=== PATIENT | male | born 1975 | race African-American/Black ===

== ENCOUNTER 2023-09-10 15:37 | Outpatient (AMB) | payer OTHER, SELFPAY ==
--- NOTE | 2023-09-10 15:45 | A.OFFPC_ITS ---
Vital Signs 09/10/23 15:47 09/10/23 16:24 Height 5 ft 7 in Weight 270 lb BMI 42.3 BMI Reason not done Patient refused/unable BP 140/85 H 120/58 L Blood Pressure Location Rt brachial Lt brachial Position Sitting Sitting Pulse 81 Pulse Source Pulse Oximeter Temp 98.1 F Temp Source Temporal Artery Scan Pulse Oximetry (%) 96 Oxygen Delivery Method Room Air Intake Visit Reasons: EST care Intake Note: Patient is here to establish care. Patient reports he has not seen a doctor in about 6 years. Patient reports he has low back pain exacerbated by walking. 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 Accompanied by: Self / Same As Patient Allergies No Known Allergies Allergy (Verified 09/10/23 16:09) Medication List - Last Reconciled 09/10/23 by GABI Shanks No Known Home Meds Tobacco use date assessed: 09/10/23 Dental Screening Dental Screen Date: 09/10/23 Did you have a dental visit in the last 12 months?: Yes Did you have a dental problem in the last 6 months where you did not have access to dental care?: No Was dental information given to patient?: Patient has dentist HPI HPI Comments History of Present Illness Details Awais 48-year-old male with obesity, MDD and c hronic low back pain Surgery denies Health Maintenance: Colon would like to wait until age 51 Specialists: Optho Here today to est care and for CPE No previous medical records Has blurred vision when reading. Chronic low back pain, no overt trauma or surgery. Has been present for 5 years. Has never had it looked at before. Interested in losing wt. Discussed w him today the metabolic clinic and the bariatric clinic. Would like to think about this & get back to me. In regards to MDD - he states its related to waiting for his green card. Not on meds. Does not feel he needs counseling or meds. Has good family support [facility], [facility] Social History (Updated 09/10/23 @ 16:00 by Wilda Cazares [facility]) Household Members: Spouse and Friend(s) Household Members Other:: house sharing Housing: Apartment 75 years or older and lives alone: No Alcohol intake: current Alcohol intake frequency: a few times a month Patient Tobacco Use Status: Never used Tobacco e-Cigarette/Vaping Use: Never Used Use of substances other than those prescribed or required for medical reasons: No Have you been hit, kicked, punched, or otherwise hurt by someone within the past year? 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 1. Little interest or pleasure in doing things: nearly every day 2. Feeling down, depressed, or hopeless: several days 3. Trouble falling or staying asleep, or sleeping too much: several days 4. Feeling tired or having little energy: more than half the days 5. Poor appetite or overeating: nearly every day 6. Feeling bad about yourself - or that you are a failure or have let yourself or your family down: nearly every day 7. Trouble concentrating on things, such as reading the newspaper or watching television: not at all 8. Moving or speaking so slowly that other people could have noticed. Or the opposite - being so fidgety or restless that you have been moving around a lot more than usual: not at all 9. Thoughts that you would be better off or of hurting yourself in some way: not at all Total score: 13 Depression Screening Interpretation: Positive Depression Screening Follow-up: Existing condition Depression Screening Done: Yes 30704 - PHQ-9 Billing: Yes Source: Developed by Drs. Gabriel Dowling, Ashley Cuevas, Asif Art and colleagues, with an educational smooth from [employer]. Thrive Questionnaire Date Thrive assessed: 09/10/23 I am a: Patient What is your living situation today?: I have a steady place to live Within the past 12 months, did the food you bought not last and you didn't have the money to get more?: Never true Within the past 12 months, did you worry whether your food would run out before you got money to buy more?: Never true Do you have trouble paying for medicines?: No Do you have trouble getting transportation to medical appointments?: No Do you have trouble paying your heating and electricity bill?: No Do you have trouble taking care of your child, family member or friend?: No Do you have trouble with day-to-day activities such as bathing, preparing meals, shopping, managing finances, etc.?: No Are you currently unemployed and looking for a job?: No Are you interested in more education?: Yes Please select the resources that you would like help with: Education Currently or been in a relationship where the following occur: no concerns reported THRIVE Score: 0 AUDIT C Alcohol Use Questionnaire (AUDIT-C) 1. How often do you have a drink containing alcohol?: Monthly or less 2. How many drinks containing alcohol do you have on a typical day when you are drinking?: 1 or 2 3. How often do you have six or more drinks on one occasion?: Never Total Score: 1 Score Reviewed/Action Taken: Yes STERLING-7 AMB Questionnaire STERLING-7 Date STERLING - 7 assessed: 09/10/23 Feeling nervous, anxious, or on edge: 0 = Not at all Not being able to stop or control worryin = Not at all Worrying too much about different things: 0 = Not at all Trouble relaxin = Not at all Being so restless that it is hard to sit still: 0 = Not at all Becoming easily annoyed or irritable: 0 = Not at all Feeling afraid as if something awful might happen: 0 = Not at all Total STERLING-7 score (0-4 normal; 5-9 mild; 10-14 moderate; 15-21 severe): 0 Source: Developed by Drs. Gabriel Dowling, Ashley Cuevas, Asif Art and colleagues, with an educational smooth from [employer]. STERLING-7 Assessment Billing STERLING-7 Assessment Tool: STERLING-7 Assessment 54725 Review of Systems Const Details: Constitutional: Denies fever. Skin: Denies rash. Eye: Denies eye pain. ENMT: Denies sore throat and nasal congestion. Respiratory: Denies shortness of breath and cough. Gastrointestinal: Denies nausea, vomiting or abdominal pain. Cardiovascular: Denies chest pain and syncope. Genitourinary: Denies dysuria. Musculoskeletal: Denies extremity pain. Neurologic: Denies headaches, confusion, and weakness. Psychiatric: Denies suicidal thoughts and substance abuse. Allergy/ Immunologic: Denies impaired immunity. Physical exam (Primary Care) Vital Signs: Last Vital Signs Temp 98.1 F 09/10/23 15:47 Pulse 81 09/10/23 15:47 BP 140/85 H 09/10/23 15:47 Pulse Ox 96 09/10/23 15:47 Oxygen Delivery Method Room Air 09/10/23 15:47 BMI result Body Mass Index 42.3 BMI Assessment/Plan discussion: High BMI High, discussed plan: lifestyle Tobacco/Smoking Status: Tobacco use Status Tobacco use date assessed 09/10/23 09/10/23 15:57 Patient Tobacco Use Status Never used Tobacco 09/10/23 16:00 e-Cigarette/Vaping Use Never Used 09/10/23 16:00 PHQ-9: PHQ-9 Score PHQ-9: Total score 13 09/10/23 16:02 Depression Screening Interpretation: Positive Depression Screening Follow-up: Existing condition Thrive Assessment: Date of Thrive Assessment Date Thrive assessed 09/10/23 09/10/23 16:02 Currently or been in a relationship where the following occur: no concerns reported Advance Care Planning discussion: Exists, not on file Date of discussion: 09/10/23 Forms completed: Health Care Proxy and MOLST Time spent: 1-15 minutes, not on file Actual minutes spent: 4 Did not discuss due to Cultural/Spiritual beliefs: Yes Const Other: General: Well developed, well nourished, in no acute distress. Appears stated age. Head: Normocephalic, atraumatic. Eyes: Pupils are equal, round and reactive to light and accommodation. Conjunctivae are clear. Vision grossly normal. Ears: TMs clear AU, EACS WNL Nose: Patent, without discharge. Mouth: There are no ulcers or lesions noted. No inflammation, no post nasal dr ip, no plaques nor exudates. Neck: Supple, no adenopathy or thyromegaly. Lungs: Clear to auscultation bilaterally. No rales, rhonchi or wheeze noted. Good air flow in all cain. Heart: Regular rate and rhythm. No murmurs, click, rubs or gallops are noted. Abdomen: Bowel sounds present in all quadrants. The abdomen is soft, nontender, with no masses or organomegaly noted. No hernias are noted. Musculoskeletal: Joints are nontender, without swelling, redness, or effusions. Range of motion is observed to be normal. Pulses: Peripheral pulses are equal and palpable bilaterally. Extremities: No clubbing, cyanosis nor edema is noted. Neurologic: Gait and station normal. Cranial Nerves 2-12 intact. Motor strength grossly symmetrical and intact. No sensory loss. Balance normal. Skin: No rashes, ulcers, or lesions noted. Turgor is good. Skin color is good. Hair and nails are without abnormalities. Psych: Normal eye contact, affect and mood appropriate, and normal interaction s. Patient is alert and appropriate to context. Extremities: No clubbing, cyanosis or edema. Assessment and Plan Assessment & Plan (1) Encounter for general adult medical examination without abnormal findings: Code(s): Z00.00 - Encounter for general adult medical examination without abnormal findings (2) MDD (major depressive disorder), recurrent episode: Comment: not on meds, does not need counseling related to circumstances advised to let us know if something changes Code(s): F33.9 - Major depressive disorder, recurrent, unspecified Qualifiers: Major depression episode severity: mild Qualified Code(s): F33.0 - Major depressive disorder, recurrent, mild (3) Morbid obesity with BMI of 40.0-44.9, adult: Comment: encouraged lifestyle mods if interested in metabolic clinic or bariatric clinic let us know Code(s): E66.01 - Morbid (severe) obesity due to excess calories; Z68.41 - Body mass index [BMI] 40.0-44.9, adult (4) Blurred vision, bilateral: Comment: refer to optho Code(s): H53.8 - Other visual disturbances (5) Chronic low back pain: Comment: refer to pain mgmt for eval and tx Code(s): M54.50 - Low back pain, unspecified; G89.29 - Other chronic pain Qualifiers: Back pain laterality: midline Sciatica presence: without sciatica Qualified Code(s): M54.50 - Low back pain, unspecified; G89.29 - Other chronic pain Orders: Orders Hemoglobin A1c Today Comprehensive Gilbert. Panel Fast Today Lipid Panel Today PSA, Ultra Sensitive Today Microalbumin, Random (w Creat) Today Z00.00 - Encounter for general adult medical examination without abnormal findings Referrals Pain Management Referral G89.29 - Other chronic pain, M54.50 - Low back pain, unspecified Ophthalmology Referral H53.8 - Other visual disturbances Patient Instructions: RTO IN 1 YEAR FOR CPE, SOONER NEEDED Review Patient declined Colonoscopy: 09/10/23 Coding Level of Care Code New Pt Prev Care 40-64y(70625) Diagnoses Encounter for general adult medical examination without abnormal findings Z00.00 Mild episode of recurrent major depressive disorder F33.0 Major depression episode severity: mild Morbid obesity with BMI of 40.0-44.9, adult E66.01; Z68.41 Blurred vision, bilateral H53.8 Chronic midline low back pain without sciatica M54.50; G89.29 Back pain laterality: midline Sciatica presence: without sciatica Additional Codes STERLING-7 Assessment Billing - STERLING-7 Assessment Tool: STERLING-7 Assessment 89184 ([id number]) Vital Signs *Quality* - Advance Care Planning discussion: Exists, not on file ([id number]) Vital Signs *Quality* - Time spent: 1-15 minutes, not on file ([id number]) Vital Signs *Quality* - Did not discuss due to Cultural/Spiritual beliefs: Yes ([id number])
[2023-09-10 15:47] VITALS: BP 140/85; PULSE 81; TEMP 36.7; O2SAT 96; BMI 42.3
[2023-09-10 16:24] VITALS: BP 120/58
== END 2023-09-10 16:37 | disposition home or self-care (01) ==
PROVIDERS: Visit Provider Nurse Practitioner Family
DX: Z00.00 Encounter for general adult medical examination without abnormal findings (principal); F33.0 Major depressive disorder, recurrent, mild; E66.01 Morbid (severe) obesity due to excess calories; Z68.41 Body mass index [BMI] 40.0-44.9, adult; H53.8 Other visual disturbances; M54.50 Low back pain, unspecified; G89.29 Other chronic pain
CPT/HCPCS: 1124F; 99386

== ENCOUNTER 2023-10-23 11:58 | Outpatient (AMB) | payer OTHER, SELFPAY ==
--- NOTE | 2023-10-23 12:06 | A.OFFPC_ITS ---
Vital Signs 10/23/23 12:17 Height 5 ft 7 in Weight 272 lb 6 oz BMI 42.7 BP 122/86 Blood Pressure Location Lt brachial Position Sitting Pulse Source Pulse Oximeter Temp 98.1 F Temp Source Oral Pulse Oximetry (%) 98 Oxygen Delivery Method Room Air Intake Visit Reasons: Congested Intake Note: patient here for sick visit. c/o cough, congestion, chest pain. 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 Also reports that he did have a cough about 2 weeks ago. This has since resolved without any medical treatment. At home treatment: drinking h20 w/o relief Denies fever, chills, ear pain,sore throat. 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 Gabriel Dowling, Ashley Cuevas, Asif Art and colleagues, with an educational smooth from [employer]. Review of Systems Const All systems reviewed & are unremarkable except as noted in HPI and below Physical exam (Primary Care) Vital Signs: Last Vital Signs Temp 98.1 F 10/23/23 12:17 BP 122/86 10/23/23 12:17 Pulse Ox 98 10/23/23 12:17 Oxygen Delivery Method Room Air 10/23/23 12:17 BMI result Body Mass Index 42.7 Tobacco/Smoking Status: Tobacco use Status Tobacco use date assessed 09/10/23 10/23/23 12:08 Patient Tobacco Use Status Never used Tobacco 10/23/23 12:08 e-Cigarette/Vaping Use Never Used 10/23/23 12:08 Thrive Assessment: Date of Thrive Assessment Date Thrive assessed 09/10/23 10/23/23 12:08 Const Other: Awake alert NAD Sclera and conjunctiva clear bilat Nares patent, turbinates pale, no sinus tenderness with palpation bilat TM not visible due to cerumen in bilat EAC MMM, pharynx positive postnasal drip RRR LS CTAB Assessment and Plan Assessment & Plan (1) Allergic rhinitis: Code(s): J30.9 - Allergic rhinitis, unspecified Qualifiers: Allergic rhinitis trigger: unspecified Allergic rhinitis seasonality: seasonal Qualified Code(s): J30.2 - Other seasonal allergic rhinitis Medications: New cetirizine (Zyrtec) 10 mg PO DAILY 30 caps 0RF fluticasone propionate 50 mcg/actuation administer into each nostril 1 spray intranasal BID 16 grams 0RF Patient Instructions: Treat with Zyrtec daily and Flonase. If no improvement of symptoms or worsening of symptoms advised to return to the office for further evaluation and treat ment. Coding Level of Care Code Est Pt Level 3 (45996) Diagnoses Seasonal allergic rhinitis, unspecified trigger J30.2 Allergic rhinitis trigger: unspecified Allergic rhinitis seasonality: seasonal
[2023-10-23 12:17] VITALS: BP 122/86; TEMP 36.7; O2SAT 98; BMI 42.7
== END 2023-10-23 16:12 | disposition home or self-care (01) ==
LOC: HO.HMGFM 11:58
PROVIDERS: PCP Nurse Practitioner Family; Visit Provider Nurse Practitioner Family
DX: J30.2 Other seasonal allergic rhinitis (principal)
CPT/HCPCS: 99213

== ENCOUNTER 2024-12-13 09:23 | Outpatient (AMB) | payer OTHER, SELFPAY ==
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
[2024-12-13 09:39] VITALS: BP 142/80; PULSE 76; RESP 13; TEMP 36.4; O2SAT 96; BMI 43.8
--- OUTSIDE RECORDS SUMMARY | 2024-12-13 09:45 | XMS_ITS | Clinical Summary ---
Author Organization [facility] Address [address] [place] [address] Care Team Providers Care Change Management Coordinator Name Role Phone Unavailable Primary Care Provider Unavailabl e Source Comments PLEASE NOTE, if this patient is a minor, it may be UNLAWFUL to discuss sensitive information that is contained in these records (such as FAMILY PLANNING, MENTAL HEALTH or SUBSTANCE ABUSE) with the minor patient's parent or other person without the patient's specific authorization.[facility] Allergies No known active allergies Medications No known medications Immunizations Immunization Administration Dates Next Due Pfizer-BioNT[employer]le Biologics COVID-19 Vac cine Bivalent, (GALLEGOS PFIZER-BIONTECH COVID-19 VACCINE BIVALENT, (GALLEGOS CAP 06/28/2022 Social History Tobacco Use Types Packs/Day Years Used Date Smoking Tobacco: Never Passive Smoke Exposure: Never Smokeless Tobacco: Never Tobacco Cessation:Counseling Given: Not Answered Social Connections Answer Date Recorded Connectedness 0 01/23/2024 Financial Resource Strain Answer Date R ecorded Financial Resource Strain 0 2023 Stress Answer Date Recorded Stress 0 07/20/2023 Physical Activity Answer Date Recorded Physical Activity 0 07/20/2023 Food Insecurity Answer Date Recorded Food 0 02/04/2024 Transportation Needs Answer Date Record ed Transportation 0 07/20/2023 Housing Stability Answer Date Recorded Housing 0 07/20/2023 Safety and Environment Answer Date Bobo rded Safety 0 07/20/2023 Utilities Answer Date Recorded Utilities 0 07/20/2023 Employment Answer Date Recorded Stress 0 01/23/2024 Sex and Gender Information Value Date Recorded Sex Assigned at Not on file Legal Sex Male 8:20 AM PST Gender Identity Not on file Sexual Orientation Not on file Last Filed Vital Signs Vital Sign Reading Time Taken Comments Blood Pressure 126/80 08/06/2023 1:13 PM EDT Pulse 78 08/06/2023 1:13 PM EDT Temperature - - Respiratory Rate - - Oxygen Saturation - - Inhaled Oxygen Concentration - - Weight - - Height - - Body Mass Index - - Plan of Treatment Health Maintenance Due Date Last Done Comments Anxiety Screening 1976 Diabetes Screening 1976 Hepatitis C Screening 1976 Lipid Screening 1976 Tobacco Screening 1976 HIV Screening 1991 Imm-DTaP/Tdap/Td (1 - Tdap) 1995 Imm-Hepatitis B (1 of 3 - 19+ 3-dose series) 5 CT Colonography 2021 Colonoscopy 2021 Colorectal Cancer Screening 2021 FIT/gFOBT 2021 Fecal DNA 2021 Flexible Sigmoidoscopy 2021 [id number] () 01/10/2024 023 Alcohol and Drug Screen 05/11/2024 Depression Annual Screen 05/11/2024 Hypertension Screening (#1) 08/05/2024 Dental BW 08/07/2024 08/06/2023 Dental Examination 08/07/2024 08/06/2023 Dental Perio Charting 08/07/2024 08/06/2023 Dental Prophy 08/07/2024 08/06/2023 Imm-Influenza (#1) 2025 Dental FMX/Pano 08/07/2028 08/06/2023 Procedures Procedure Name Priority Date/Time Associated Diagnosis Comments Full INTRAORAL - COMP SERIES OF RADIOGRAPHIC IMAGES Routine 08/06/2023 1:00 PM EDT Retained tooth root Defective dental mu-ism Caries Full PROPHYLAXIS - ADULT Routine 024 1:00 PM EDT Retained tooth root Caries Defective dental mu-ism Full COMP ORAL EVALUATION - NEW/ESTABLISHED PATIENT Routine 08/06/2023 1:00 PM EDT Retained tooth root Caries Defective dental mu-ism from Last 3 Months or Most Recently Relevant to Health Maintenance [place]
== END 2024-12-13 10:59 | disposition home or self-care (01) ==
PROVIDERS: PCP Nurse Practitioner Family; Visit Provider Nurse Practitioner Family
DX: S13.4XXA Sprain of ligaments of cervical spine, initial encounter (principal); M54.50 Low back pain, unspecified; V89.2XXA Person injured in unspecified motor-vehicle accident, traffic, initial encounter; Z04.2 Encounter for examination and observation following work accident

== ENCOUNTER → 2024-12-13 09:23 | Outpatient (BNVA) | payer OTHER, SELFPAY | PROVIDERS: PCP Nurse Practitioner Family; Visit Provider Nurse Practitioner Family | DX: Z00.00 Encounter for general adult medical examination without abnormal findings (principal); E78.00 Pure hypercholesterolemia, unspecified; E55.9 Vitamin D deficiency, unspecified; I73.9 Peripheral vascular disease, unspecified; M54.50 Low back pain, unspecified; G89.29 Other chronic pain; H61.23 Impacted cerumen, bilateral; E66.01 Morbid (severe) obesity due to excess calories; R90.89 Other abnormal findings on diagnostic imaging of central nervous system; H53.8 Other visual disturbances; D49.2 Neoplasm of unspecified behavior of bone, soft tissue, and skin; F33.0 Major depressive disorder, recurrent, mild; J30.2 Other seasonal allergic rhinitis; G47.10 Hypersomnia, unspecified; Z23 Encounter for immunization; Z68.41 Body mass index [BMI] 40.0-44.9, adult | CPT/HCPCS: 69209; 90471; 90715; 96127; 99212; 99396 ==

== ENCOUNTER 2024-12-13 09:32 | Outpatient (AMB) | payer OTHER, SELFPAY ==
--- NOTE | 2024-12-13 09:41 | MHC.PC.OV ---
Vital Signs 12/13/24 09:42 Height 5 ft 7 in Weight 280 lb BMI 43.8 BP 142/80 H Blood Pressure Location Lt brachial Position Sitting Respiration 13 Pulse 76 Pulse Source Pulse Oximeter Temp 97.6 F Temp Source Oral Pulse Oximetry (%) 96 Oxygen Delivery Method Room Air Intake Visit Reasons: cpe Intake Note: CPE Cellars Supervisor Required: No Allergies No Known Allergies Allergy (Verified 12/13/24 09:42) Tobacco use date assessed: 12/13/24 Dental Screening Dental Screen Date: 12/13/24 Did you have a dental visit in the last 12 months?: Yes Did you have a dental problem in the last 6 months where you did not have access to dental care?: No Was dental information given to patient?: Patient has dentist [facility] Medical History (Updated 12/13/24 @ 09:34 by Mary Lou Lazaro MA) No pertinent family history Depression Allergic Surgical History (Updated 12/13/24 @ 09:34 by Mary Lou Lazaro MA) No pertinent past surgical history Social History (Updated 09/10/23 @ 16:00 by Wilda Cazares CMA) Household Members: Spouse and Friend(s) Household Members Other:: house sharing Housing: Apartment [address] years or older and lives alone: No Alcohol intake: current Alcohol intake frequency: a few times a month Patient Tobacco Use Status: Never used Tobacco e-Cigarette/Vaping Use: Never Used service: No Current occupational status: employed 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 1. Little interest or pleasure in doing things: several days 2. Feeling down, depressed, or hopeless: not at all 3. Trouble falling or staying asleep, or sleeping too much: not at all 4. Feeling tired or having little energy: several days 5. Poor appetite or overeating: not at all 6. Feeling bad about yourself - or that you are a failure or have let yourself or your family down: not at all 7. Trouble concentrating on things, such as reading the newspaper or watching television: not at all 8. Moving or speaking so slowly that other people could have noticed. Or the opposite - being so fidgety or restless that you have been moving around a lot more than usual: not at all 9. Thoughts that you would be better off or of hurting yourself in some way: not at all Total score: 2 Depression Screening Interpretation: Negative Depression Screening Done: Yes 14767 - PHQ-9 Billing: Yes Source: Developed by Drs. Gabriel Dowling, Ashley Cuevas, Asif Art and colleagues, with an educational smooth from [employer]. Thrive Questionnaire Date Thrive assessed: 12/13/24 I am a: Patient What is your living situation today?: I have a steady place to live Within the past 12 months, did the food you bought not last and you didn't have the money to get more?: Never true Within the past 12 months, did you worry whether your food would run out before you got money to buy more?: Never true Do you have trouble paying for medicines?: No Do you have trouble getting transportation to medical appointments?: No Do you have trouble paying your heating and electricity bill?: No Do you have trouble taking care of your child, family member or friend?: No Do you have trouble with day-to-day activities such as bathing, preparing meals, shopping, managing finances, etc.?: No Are you currently unemployed and looking for a job?: No Are you interested in more education?: No THRIVE Score: 0 STERLING-7 AMB Questionnaire STERLING-7 Date STERLING - 7 assessed: 12/13/24 Feeling nervous, anxious, or on edge: 0 = Not at all Not being able to stop or control worryin = Not at all Worrying too much about different things: 0 = Not at all Trouble relaxin = Not at all Being so restless that it is hard to sit still: 0 = Not at all Becoming easily annoyed or irritable: 0 = Not at all Feeling afraid as if something awful might happen: 0 = Not at all Total STERLING-7 score (0-4 normal; 5-9 mild; 10-14 moderate; 15-21 severe): 0 Source: Developed by Drs. Gabriel Dowling, Ashley Cuevas, Asif Art and colleagues, with an educational smooth from [employer]. STERLING-7 Assessment Billing STERLING-7 Assessment Tool: STERLING-7 Assessment 61619 Physical exam (Primary Care) Vital Signs: Last Vital Signs Temp 97.6 F 12/13/24 09:42 Pulse 76 12/13/24 09:42 Resp 13 12/13/24 09:42 BP 142/80 H 12/13/24 09:42 Pulse Ox 96 12/13/24 09:42 Oxygen Delivery Method Room Air 12/13/24 09:42 BMI result Body Mass Index 43.8 Tobacco/Smoking Status: Tobacco use Status Tobacco use date assessed 12/13/24 12/13/24 09:44 Patient Tobacco Use Status Never used Tobacco 12/13/24 09:44 e-Cigarette/Vaping Use Never Used 12/13/24 09:44 Depression Screening Interpretation: Negative Thrive Assessment: Date of Thrive Assessment Date Thrive assessed 12/13/24 12/13/24 09:44 Coding Additional Codes PHQ-9 - 88176 - PHQ-9 Billing: Yes ([id number]) STERLING-7 Assessment Billing - STERLING-7 Assessment Tool: STERLING-7 Assessment 31775 ([id number])
[2024-12-13 09:42] VITALS: BP 142/80; PULSE 76; RESP 13; TEMP 36.4; O2SAT 96; BMI 43.8
--- NOTE | 2024-12-13 10:18 | A.OFFPC_ITS ---
Vital Signs 3 12/13/24 09:42 Height 5 ft 7 in Weight 280 lb BMI 43.8 BP 142/80 H Blood Pressure Location Lt brachial Position Sitting Respiration 13 Pulse 76 Pulse Source Pulse Oximeter Temp 97.6 F Temp Source Oral Pulse Oximetry (%) 96 Oxygen Delivery Method Room Air Intake Visit Reasons: cpe Allergies No Known Allergies Allergy (Verified 12/13/24 10:29) Medication List - Last Reconciled 12/13/24 by Jessica Herrera, RETINAL ANGIOGRAPHER- cetirizine (Zyrtec) 10 mg PO DAILY fluticasone propionate 50 mcg/actuation 1 spray intranasal BID Tobacco use date assessed: 12/13/24 Dental Screening Dental Screen Date: 12/13/24 HPI HPI Comments 2 History of Present Illness0 Details Awais 49-year-old male with obesity, MDD and c hronic low back pain Surgery denies Health Maintenance: Colon would like to wait until age 51 Tdap today Specialists: Optho Here today for CPE Has blurred vision when reading. New growth Left lower lid Chronic low back pain, referred to pain mgmt in the past; did not attend appts. Does have lumbar disc bulge noted on imaging. Obese discussed referrals in past In regards to MDD - he states its related to waiting for his green card. Not on meds. Does not feel he needs counseling or meds. Has good family support Incidental findings on 12/06/[address] review w/ him. Concern well defined ovoid hypodensity L caudate ? CVA. Denies overt sx other than change in speech a few years ago. willing to pursue work up. Plan Labs, Echo, sleep study, MRI Brain w/o contrast I will fu once results are back Tdap today Optho referral Consider pain mgmt, vascular or bariatric referral in the future my office will coordinate f/u once results are back An additional 30 minutes was spent addressing the problem(s) noted at todays visit. This includes time spent before the visit reviewing the chart, time spent during the visit, and time spent after the visit on documentation reviewing laboratory results, diagnostic imaging, medications, performing a medically necessary evaluation, counseling on diagnoses, care coordination, ordering appropriate tests, ordering appropriate medications, review of tests performed by other providers, reporting test results with the patient, communication with other healthcare providers. [facility] Medical History (Updated 12/13/24 @ 10:[address] 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 1. Little interest or pleasure in doing things: not at all 2. Feeling down, depressed, or hopeless: not at all 3. Trouble falling or staying asleep, or sleeping too much: not at all 4. Feeling tired or having little energy: not at all 5. Poor appetite or overeating: not at all 6. Feeling bad about yourself - or that you are a failure or have let yourself or your family down: not at all 7. Trouble concentrating on things, such as reading the newspaper or watching television: not at all 8. Moving or speaking so slowly that other people could have noticed. Or the opposite - being so fidgety or restless that you have been moving around a lot more than usual: not at all 9. Thoughts that you would be better off or of hurting yourself in some way: not at all Total score: 0 Depression Screening Interpretation: Negative Depression Screening Done: Yes 10713 - PHQ-9 Billing: Yes Source: Developed by Drs. Gabriel Dowling, Ashley Cuevas, Asif Art and colleagues, with an educational smooth from [employer]. Thrive Questionnaire Date Thrive assessed: 12/13/24 I am a: Patient What is your living situation today?: I have a steady place to live Within the past 12 months, did the food you bought not last and you didn't have the money to get more?: Never true Within the past 12 months, did you worry whether your food would run out before you got money to buy more?: Never true Do you have trouble paying for medicines?: No Do you have trouble getting transportation to medical appointments?: No Do you have trouble paying your heating and electricity bill?: No Do you have trouble taking care of your child, family member or friend?: No Do you have trouble with day-to-day activities such as bathing, preparing meals, shopping, managing finances, etc.?: No Are you currently unemployed and looking for a job?: No Are you interested in more education?: No Please select the resources that you would like help with: None Currently or been in a relationship where the following occur: No concerns reported THRIVE Score: 0 AUDIT C Alcohol Use Questionnaire (AUDIT-C) 1. How often do you have a drink containing alcohol?: Never 3. How often do you have six or more drinks on one occasion?: Never Total Score: 0 Score Reviewed/Action Taken: Yes STERLING-7 AMB Questionnaire STERLING-7 Date STERLING - 7 assessed: 12/13/24 Feeling nervous, anxious, or on edge: 0 = Not at all Not being able to stop or control worryin = Not at all Worrying too much about different things: 0 = Not at all Trouble relaxin = Not at all Being so restless that it is hard to sit still: 0 = Not at all Becoming easily annoyed or irritable: 0 = Not at all Feeling afraid as if something awful might happen: 0 = Not at all Total STERLING-7 score (0-4 normal; 5-9 mild; 10-14 moderate; 15-21 severe): 0 Source: Developed by Drs. Gabriel Dowling, Ashley Cuevas, Asif Art and colleagues, with an educational smooth from [employer]. STERLING-7 Assessment Billing STERLING-7 Assessment Tool: STERLING-7 Assessment 34022 Physical exam (Primary Care) Vital Signs: Last Vital Signs Temp 97.6 F 12/13/24 09:42 Pulse 76 12/13/24 09:42 Resp 13 12/13/24 09:42 BP 142/80 H 12/13/24 09:42 Pulse Ox 96 12/13/24 09:42 Oxygen Delivery Method Room Air 12/13/24 09:42 BMI result Body Mass Index 43.8 BMI Assessment/Plan discussion: High BMI High, discussed plan: lifestyle Tobacco/Smoking Status: Tobacco use Status Tobacco use date assessed 09/10/23 10/23/23 12:08 Patient Tobacco Use Status Never used Tobacco 10/23/23 12:08 e-Cigarette/Vaping Use Never Used 10/23/23 12:08 Depression Screening Interpretation: Negative Thrive Assessment: Date of Thrive Assessment Date Thrive assessed 09/10/23 10/23/23 12:08 Currently or been in a relationship where the following occur: No concerns reported Advance Care Planning discussion: Exists, not on file Date of discussion: 09/10/23 Forms completed: Health Care Proxy and MOLST Time spent: 1-15 minutes, not on file Actual minutes spent: 4 Did not discuss due to Cultural/Spiritual beliefs: Yes Const Other: General: Well developed, well nourished, in no acute distress. Appears stated age. Head: Normocephalic, atraumatic. Eyes: Pupils are equal, round and reactive to light and accommodation. Conjunctivae are clear. Vision grossly normal. Growth left lower eye lid Ears: TMs clear AU, EACS WNL s/p lavage bilat d/t cerumen impaction Nose: Patent, without discharge. Mouth: There are no ulcers or lesions noted. No inflammation, no post nasal drip, no plaques nor exudates. Neck: Supple, no adenopathy or thyromegaly. Lungs: Clear to auscultation bilaterally. No rales, rhonchi or wheeze noted. Good air flow in all cain. Heart: Regular rate and rhythm. No murmurs, click, rubs or gallops are noted. Abdomen: Bowel sounds present in all quadrants. The abdomen is soft, nontender, with no masses or organomegaly noted. No hernias are noted. Musculoskeletal: Joints are nontender, without swelling, redness, or effusions. Range of motion is observed to be normal. Pulses: Peripheral pulses are equal and palpable bilaterally. Extremities: No clubbing, cyanosis nor edema is noted. Hairless BLE, scars noted to ble, decreased PP bilat Neurologic: Gait and station normal. Cranial Nerves 2-12 intact. Motor strength grossly symmetrical and intact. No sensory loss. Balance normal. Skin: No rashes, ulcers, or lesions noted. Turgor is good. Skin color is good. Hair and nails are without abnormalities. Psych: Normal eye contact, affect and mood appropriate, and normal interactions. Patient is alert and appropriate to context. Extremities: No clubbing, cyanosis or edema. Office Procedures Cerumen Removal From which ear canal was the cerumen removed: bilateral Removal: irrigation Notes: patient tolerated procedure well, no complications and ear canal clear 93301-Aim Irrigation/Lavage Results Reviewed Results Reviewed: Coding Level of Care Code Est Pt Level 4 (77147) Est Pt Prev Care 40-64y(26554) Diagnoses Encounter for general adult medical examination without abnormal findings Z00.00 Need for Tdap vaccination Z23 Impacted cerumen, bilateral H61.23 Laboratory exam ordered as part of routine general medical examination Z00.00 Morbid obesity with BMI of 40.0-44.9, adult E66.01; Z68.[address] R90.89 Blurred vision, bilateral H53.8 Growth of eyelid D49.2 PVD (peripheral vascular disease) I73.9 Mild episode of recurrent major depressive disorder F33.0 Major depression episode severity: mild Bulge of lumbar disc without myelopathy M51.369 Seasonal allergic rhinitis, unspecified trigger J30.2 Allergic rhinitis trigger: unspecified Allergic rhinitis seasonality: seasonal Chronic midline low back pain without sciatica M54.50; G89.29 Back pain laterality: midline Sciatica presence: without sciatica CPT Codes Office Procedure - CPT: 96601-Zln Irrigation/Lavage ([id number]) Additional Codes PHQ-9 - 77826 - PHQ-9 Billing: Yes ([id number]) STERLING-7 Assessment Billing - STERLING-7 Assessment Tool: STERLING-7 Assessment 79431 ([id number]) Vital Signs *Quality* - Advance Care Planning discussion: Exists, not on file ([id number]) Vital Signs *Quality* - Time spent: 1-15 minutes, not on file ([id number]) Vital Signs *Quality* - Did not discuss due to Cultural/Spiritual beliefs: Yes ([id number]) Assessment & Plan Assessment & Plan (1) Encounter for general adult medical examination without abnormal findings: Onset Date: ~12/13/24 Code(s): Z00.00 - Encounter for general adult medical examination without abnormal findings Category: Medical (2) Need for Tdap vaccination: Code(s): Z23 - Encounter for immunization Category: Medical (3) Impacted cerumen, bilateral: Code(s): H61.23 - Impacted cerumen, bilateral (4) Laboratory exam ordered as part of routine general medical examination: Code(s): Z00.00 - Encounter for general adult medical examination without abnormal findings Category: Medical (5) Morbid obesity with BMI of 40.0-44.9, adult: Comment: encouraged lifestyle mods if interested in metabolic clinic or bariatric clinic let us know Code(s): E66.01 - Morbid (severe) obesity due to excess calories; Z68.41 - Body mass index [BMI] 40.0-44.9, adult Category: Medical (6) Abnormal brain CT: Onset Date: 12/06/24 Comment: ct scan [facility] 12/06/24 well defined ovoid hypodensity L caudate ? CVA Code(s): R90.89 - Other abnormal findings on diagnostic imaging of central nervous system Category: Medical (7) Blurred vision, bilateral: Comment: refer to optho Code(s): H53.8 - Other visual disturbances Category: Medical (8) Growth of eyelid: Comment: left lower Code(s): D49.2 - Neoplasm of unspecified behavior of bone, soft tissue, and skin Category: Medical (9) PVD (peripheral vascular disease): Comment: based on exam check labs Code(s): I73.9 - Peripheral vascular disease, unspecified Category: Medical (10) MDD (major depressive disorder), recurrent episode: Comment: not on meds, does not need counseling related to circumstances advised to let us know if something changes Code(s): F33.9 - Major depressive disorder, recurrent, unspecified Category: Medical Qualifiers: Major depression episode severity: mild Qualified Code(s): F33.0 - Major depressive disorder, recurrent, mild (11) Bulge of lumbar disc without myelopathy: Code(s): M51.369 - Other intervertebral disc degeneration, lumbar region without mention of lumbar back pain or lower extremity pain Category: Medical (12) Allergic rhinitis: Code(s): J30.9 - Allergic rhinitis, unspecified Category: Medical Qualifiers: Allergic rhinitis trigger: unspecified Allergic rhinitis seasonality: s easonal Qualified Code(s): J30.2 - Other seasonal allergic rhinitis (13) Chronic low back pain: Comment: refer to pain mgmt for eval and tx Code(s): M54.50 - Low back pain, unspecified; G89.29 - Other chronic pain Category: Medical Qualifiers: Back pain laterality: midline Sciatica presence: without sciatica Q ualified Code(s): M54.50 - Low back pain, unspecified; G89.29 - Other chronic pain Plan . Orders: Orders 2 Comprehensive Met. Panel Today Z00.00 - Encounter for general adult medical examination without abnormal findings Hemoglobin A1c Today Z00.00 - Encounter for general adult medical examination without abnormal findings Microalbumin, Random (w Creat) Today Z00.00 - Encounter for general adult medical examination without abnormal findings TDaP Immunization Today D49.2 - Neoplasm of unspecified behavior of bone, soft tissue, and skin, H53.8 - Other visual disturbances, Z23 - Encounter for immunization Complete Blood Count no Diff Today Z00.00 - Encounter for general adult medical examination without abnormal findings Lipid Panel Today Z00.00 - Encounter for general adult medical examination without abnormal findings Prostate Specific Antigen Scr Today Z00.00 - Encounter for general adult medical examination without abnormal findings TSH reflex Free T4 Today Z00.00 - Encounter for general adult medical examination without abnormal findings Vitamin B12 and Folate Today Z00.00 - Encounter for general adult medical examination without abnormal findings Vitamin D 25-OH Total Today Z00.00 - Encounter for general adult medical examination without abnormal findings RT home sleep study Today E66.01 - Morbid (severe) obesity due to excess calories, G47.10 - Hypersomnia, unspecified, R90.89 - Other abnormal findings on diagnostic imaging of central nervous system, Z68.41 - Body mass index [BMI] 40.0-44.9, adult CA echo transthoracic complete Today E66.01 - Morbid (severe) obesity due to excess calories, R90.89 - Other abnormal findings on diagnostic imaging of central nervous system, Z68.41 - Body mass index [BMI] 40.0-44.9, adult MR head/brain wo con Today E66.01 - Morbid (severe) obesity due to excess calories, G47.10 - Hypersomnia, unspecified, R90.89 - Other abnormal findings on diagnostic imaging of central nervous system, Z68.41 - Body mass index [BMI] 40.0-44.9, adult Referrals 2 Ophthalmology Referral D49.2 - Neoplasm of unspecified behavior of bone, soft tissue, and skin, H53.8 - Other visual disturbances Medications: New 2 Boostrix Tdap (diphth,pertus(acell),tetanus) 0.5 mL IM ONCE 0.5 mL 0RF NS D49.2 - Neoplasm of unspecified behavior of bone, soft tissue, and skin, H53.8 - Other visual disturbances, Z23 - Encounter for immunization Refilled 2 cetirizine (Zyrtec) 10 mg PO DAILY 90 tabs 0RF fluticasone propionate 50 mcg/actuation administer into each nostril 1 spray intranasal BID 16 grams 0RF
== END 2024-12-13 11:00 | disposition home or self-care (01) ==
LOC: HO.HMCFM 09:32
PROVIDERS: PCP Nurse Practitioner Family; Visit Provider Nurse Practitioner Family
DX: Z00.00 Encounter for general adult medical examination without abnormal findings (principal); R90.89 Other abnormal findings on diagnostic imaging of central nervous system; E66.01 Morbid (severe) obesity due to excess calories; Z68.41 Body mass index [BMI] 40.0-44.9, adult; H53.8 Other visual disturbances; Z23 Encounter for immunization; H61.23 Impacted cerumen, bilateral; D49.2 Neoplasm of unspecified behavior of bone, soft tissue, and skin; I73.9 Peripheral vascular disease, unspecified; J30.2 Other seasonal allergic rhinitis; F33.0 Major depressive disorder, recurrent, mild; M51.369 Other intervertebral disc degeneration, lumbar region without mention of lumbar back pain or lower extremity pain

== ENCOUNTER 2024-12-14 12:38 | Outpatient (REF) | payer OTHER, SELFPAY ==
--- OUTSIDE RECORDS SUMMARY | 2024-12-14 13:12 | XMS_ITS | Clinical Summary ---
Author Organization [facility] Address [address] [place] [address] Care Team Providers Care Help Aid Name Role Phone Unavailable Primary Care Provider [...] medications Immunizations Immunization Administration Dates Next Due Pfizer-BioNTBuzzvil COVID-19 Vac cine Bivalent, (GALLEGOS PFIZER-BIONTECH COVID-19 [...] 2021 Fecal DNA 2021 Flexible Sigmoidoscopy 2021 Riw-GNZLV-05 () 01/10/2024 023 Alcohol and Drug Screen [...] PM EDT Retained tooth root Defective dental yazidi Caries Full PROPHYLAXIS - ADULT Routine 024 1:00 PM EDT Retained tooth root Caries Defective dental yazidi Full COMP ORAL EVALUATION - NEW/ESTABLISHED PATIENT Routine 08/06/2023 1:00 PM EDT Retained tooth root Caries Defective dental yazidi from Last 3 Months or Most Recently Relevant to Health Maintenance [place]ENTAL
[2024-12-14 14:35] LABS: Hematocrit 42.9 % (42.0-52.0); Hemoglobin 14.5 g/dl (14.0-18.0); Mean Corpuscular HGB Conc 33.8 g/dl (31.0-36.0); Mean Corpuscular Hemoglobin 27.8 pg (27.0-33.0); Mean Corpuscular Volume 82.3 fL (80.0-98.0); NRBC Abs Auto 0.000 X10*3/uL (0.0-0.012); NRBC Pct Auto 0.0 /100WBC (0.0-0.2); Platelet Count 134 X10*3/uL (160-400); Red Blood Count 5.21 X10*6/uL (4.60-5.80); White Blood Count 6.3 X10*3/uL (4.8-10.8)
[2024-12-14 14:42] LABS: Hemoglobin A1C 127.8092 umol/L; Total Hemoglobin (HGBA1C) 3859.5765 umol/L
[2024-12-14 14:57] LABS: Alanine Aminotransferase 74 U/L (0-40); Albumin Level 4.3 g/dL (3.5-5.0); Alkaline Phosphatase 58 U/L (39-117); Anion Gap 11 (12-20); Aspartate Amino Transferase 60 U/L (5-37); Blood Urea Nitrogen 14 mg/dL (9-16); Calcium 9.1 mg/dL (8.4-10.2); Carbon Dioxide 29 mmol/L (22-29); Chloride 105 mmol/L (96-108); Cholesterol 212 mg/dL (<200); Estimated Glomerular Filt Rate > 60; HDL Cholesterol 31 mg/dL (>40); Potassium 3.9 mmol/L (3.3-5.1); Sodium 141 mmol/L (135-145); Total Protein 8.0 g/dL (6.5-8.0); Triglycerides 340 mg/dL (<150)
[2024-12-14 15:10] LABS: Microalbum/Creatinine Ratio Ur 6.9 ug/mg cr (<30)
[2024-12-14 15:23] LABS: Folate 2.8 ng/mL (> or = 4.0); Vitamin B12 771 pg/mL (200-900)
== END 2024-12-14 12:39 | disposition home or self-care (01) ==
LOC: HO.WFDLDS 12:38
PROVIDERS: Visit Provider Nurse Practitioner Family
DX: Z00.00 Encounter for general adult medical examination without abnormal findings (principal); Z12.5 Encounter for screening for malignant neoplasm of prostate; Z13.6 Encounter for screening for cardiovascular disorders
CPT/HCPCS: 36415; 80053; 80061; 82043; 82306; 82570; 82607; 82746; 83036; 84153; 84443; 85027

== ENCOUNTER 2024-12-30 09:38 | Outpatient (AMB) | payer OTHER, SELFPAY ==
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
--- OUTSIDE RECORDS SUMMARY | 2024-12-30 09:41 | XMS_ITS | Clinical Summary ---
Author Organization [facility] Address [address] [place] [address] Care Team Providers Care Vp Product Management Name Role Phone Unavailable Primary Care Provider [...] medications Immunizations Immunization Administration Dates Next Due Pfizer-BioNTMeMeMe COVID-19 Vac cine Bivalent, (GALLEGOS PFIZER-BIONTECH COVID-19 [...] 2021 Fecal DNA 2021 Flexible Sigmoidoscopy 2021 [id number]-56 () 01/10/2024 023 Alcohol and Drug Screen [...] PM EDT Retained tooth root Defective dental zoroastrian Caries Full PROPHYLAXIS - ADULT Routine 024 1:00 PM EDT Retained tooth root Caries Defective dental zoroastrian Full COMP ORAL EVALUATION - NEW/ESTABLISHED PATIENT Routine 08/06/2023 1:00 PM EDT Retained tooth root Caries Defective dental zoroastrian from Last 3 Months or Most Recently Relevant to Health Maintenance Insurance [place]ENT[place]
[2024-12-30 09:51] VITALS: BP 124/74; PULSE 76; RESP 12; TEMP 36.2; O2SAT 96; BMI 42.4
== END 2024-12-30 10:29 | disposition home or self-care (01) ==
LOC: HO.HMCFM 09:39
PROVIDERS: PCP Nurse Practitioner Family; Visit Provider Nurse Practitioner Family
DX: S22.42XA Multiple fractures of ribs, left side, initial encounter for closed fracture (principal); M54.50 Low back pain, unspecified; S13.4XXA Sprain of ligaments of cervical spine, initial encounter; Z04.3 Encounter for examination and observation following other accident; V89.2XXA Person injured in unspecified motor-vehicle accident, traffic, initial encounter; Z09 Encounter for follow-up examination after completed treatment for conditions other than malignant neoplasm

== ENCOUNTER → 2024-12-30 09:38 | Outpatient (BNVA) | payer OTHER, SELFPAY | PROVIDERS: PCP Nurse Practitioner Family; Visit Provider Nurse Practitioner Family | DX: S22.42XD Multiple fractures of ribs, left side, subsequent encounter for fracture with routine healing (principal); S13.4XXD Sprain of ligaments of cervical spine, subsequent encounter; M54.50 Low back pain, unspecified; V89.2XXD Person injured in unspecified motor-vehicle accident, traffic, subsequent encounter; Z09 Encounter for follow-up examination after completed treatment for conditions other than malignant neoplasm | CPT/HCPCS: 96127 ==

== ENCOUNTER → 2025-02-03 12:06 | Outpatient (REF) | payer OTHER, SELFPAY ==
--- NOTE | 2025-02-03 12:10 | CA_ITS ---
Transthoracic Echocardiogram Patient (Last, First, Middle): Kate Hoposn Yves Richard Gender: Male Date of : 1975 Age: 49 Procedure Date: 02/03/2025 Procedure Type: Transthoracic Echocardiogram Location: OP Height: 170.18 cm Weight: 118.39 kg BSA: 2.26 m2 Heart Rate: bpm Chief Counsel: SB Referring MD: Jessica Herrera SUPERVISOR ORCHARD-BC Symptoms: E66.01, R90.89, possible CVA on CT of brain Study Quality: TDS, contrast, needed ultrasound guided IV Conclusions: - Normal left ventricular size and systolic function. There is mildly increased left ventricular wall thickness. The visually estimated ejection fraction is between 60-65%. There is no evidence of regional wall motion abnormalities. Diastolic function is normal for age. - Normal right ventricular cavity size. There is low normal right ventricular systolic function. - There is mild dilatation of the sinuses of Valsalva measuring 3.70 cm and mild dilatation of the ascending aorta measuring 3.60 cm. Findings Procedure Information Contrast agent, definity, is being given per protocol without apparent complications. The quality of the study was technically difficult. The study quality is limited by patients body habitus. Left Ventricle Normal left ventricular size and systolic function. There is mildly increased left ventricular wall thickness. The visually estimated ejection fraction is between 60-65%. There is no evidence of regional wall motion abnormalities. Diastolic function is normal for age. Right Ventricle Normal right ventricular cavity size. There is low normal right ventricular systolic function. Atria The left atrium is normal in size. There is no evidence of interatrial shunt by agitated saline. The right atrium is normal in size. Aortic Valve Normal aortic valve structure and function. There is no aortic valve stenosis. There is no aortic valve regurgitation. Mitral Valve Normal mitral valve structure and function. There is no mitral valve regurgitation. There is no mitral valve stenosis. Pulmonic Valve The pulmonic valve is likely normal. Tricuspid Valve Normal tricuspid valve structure. There is no tricuspid valve regurgitation. Tricuspid regurgitation envelope is inadequate for calculation of right ventricular systolic pressure. Normal right atrial pressure. Great Vessels There is mild dilatation of the sinuses of Valsalva measuring 3.70 cm and mild dilatation of the ascending aorta measuring 3.60 cm. The visualized portions of the pulmonary artery and branches are normal. Venous The inferior vena cava is normal in size and collapses greater than 50% with inspiration. Pericardium/Pleural Prominent epicardial adipose tissue noted. There is no evidence of pericardial effusion. Prior Study Comparison No prior study available for comparison. Measurements 2D Linear Measurements IVSd: 1.32 0.6-0.9/0.6-1.0 cm LVIDd: 4.80 3.9-5.3/4.2-5.9 cm LVIDd Index: 2.12 2.4-3.2/2.2-3.1 cm/m2 LVIDs: 3.34 2.0-3.6 cm LVPWd: 1.12 0.7-1.1 cm LA Diam: 3.50 2.7-3.8/3.0-4.0 cm LAIDs Index: 1.55 1.5-2.3 cm/m2 LV Mass: 279.67 67-162/88-224 g LV Mass Index: 123.75 43-95/49-115 g/m2 LVOT Diam: 2.30 3.0+(-)1.3 cm 2D Systolic Function EF 4C: 72.50 >55% EF 2C: 66.30 >55% EF BiP: 69.10 >55% Mitral Valve MV Pk E: 0.47 MV PK A: 0.45 MV Decel Time: 208.00 E/A: 1.00 E'Lateral: 6.53 E'Medial: 5.33 E/E' Med: 8.80 E/E' Lat: 7.20 PHT: 61.00 MVA PHT: 3.61 Decel Marshall: 2.25 Aortic Valve AoV Pk Mehrdad: 1.07 AoV Pk Grad: 5.00 LVOT LVOT Pk Mehrdad: 0.83 LVOT Mn Mehrdad: 0.58 LVOT VTI: 0.18 LVOT Pk Grad: 3.00 LVOT Mn Grad: 2.00 LVOT Diam: 2.30 LVOT Area: 4.15 Diastolic Function MV Pk E: 0.47 MV Pk A: 0.45 E/A: 1.00 E'Medial: 5.33 E/E' Med: 8.80 E' Laterial: 6.53 E/E' Lat: 7.20 Right Ventricle TAPSE (mm): 15.80 TVS' Mehrdad: 8.70 Tricuspid Valve RA Press: 3.00 Great Vessels Aorta Sinus of Valsalva: 3.70 2.0-3.5 cm Ao Asc: 3.60 2.1-3.4 cm Ao Arch: 3.00 Pulmonary Valve PV Pk Mehrdad: 0.86 Peak PV Grad: 3.00 Updated in Other Vendor System with Status of Final David Yi MD electronically signed on 02/05/2025 8:55:18 PM with status of Final
--- OUTSIDE RECORDS SUMMARY | 2025-02-03 13:53 | XMS_ITS | Clinical Summary ---
Author Organization [facility] Address [address] [place] [address] Care Team Providers Care Java [id number] Technical Lead Name Role Phone Unavailable Primary Care Provider [...] medications Immunizations Immunization Administration Dates Next Due Pfizer-BioNTParasol Therapeutics COVID-19 Vac cine Bivalent, (GALLEGOS PFIZER-BIONTECH COVID-19 [...] (1 of 3 - 19+ 3-dose series) CT Colonography 2021 Colonoscopy 2021 Colorectal Cancer Screening 2021 FIT/gFOBT 2021 Fecal DNA 2021 Flexible Sigmoidoscopy 2021 Alcohol and Drug Screen 05/11/2024 Depression Annual Screen 05/11/2024 Hypertension Screening (#1) 08/05/2024 Dental BW 08/07/2024 08/06/2023 Dental Examination 08/07/2024 08/06/2023 Dental Perio Charting 08/07/2024 08/06/2023 Dental Prophy 08/07/2024 08/06/2023 [id number] ( season) 2025 023 Imm-Influenza (#1) 2025 Dental FMX/Pano 08/07/2028 08/06/2023 Procedures Procedure Name Priority Date/Time Associated Diagnosis Comments Full INTRAORAL - COMP SERIES OF RADIOGRAPHIC IMAGES Routine 08/06/2023 1:00 PM EDT Retained tooth root Defective dental pentecostal Caries Full PROPHYLAXIS - ADULT Routine 024 1:00 PM EDT Retained tooth root Caries Defective dental pentecostal Full COMP ORAL EVALUATION - NEW/ESTABLISHED PATIENT Routine 08/06/2023 1:00 PM EDT Retained tooth root Caries Defective dental pentecostal from Last 3 Months or Most Recently Relevant to Health Maintenance Insurance [place]ENT[place]
== END ==
LOC: HO.CARD 12:06
PROVIDERS: PCP Nurse Practitioner Family; Visit Provider Nurse Practitioner Family
DX: E66.01 Morbid (severe) obesity due to excess calories (principal); Z68.41 Body mass index [BMI] 40.0-44.9, adult; R90.89 Other abnormal findings on diagnostic imaging of central nervous system
CPT/HCPCS: 93306; Q9957

== ENCOUNTER → 2025-02-03 12:10 | Outpatient (BNV) | payer OTHER, SELFPAY | PROVIDERS: PCP Nurse Practitioner Family; Visit Provider Internal Medicine Cardiovascular Disease | DX: I77.810 Thoracic aortic ectasia (principal); R90.89 Other abnormal findings on diagnostic imaging of central nervous system; E66.01 Morbid (severe) obesity due to excess calories; Z68.41 Body mass index [BMI] 40.0-44.9, adult | CPT/HCPCS: 93306 ==

== ENCOUNTER → 2025-02-06 07:21 | Outpatient (BNV) | payer OTHER, SELFPAY | PROVIDERS: PCP Nurse Practitioner Family; Visit Provider Radiology Diagnostic Radiology | DX: E66.01 Morbid (severe) obesity due to excess calories (principal); Z68.41 Body mass index [BMI] 40.0-44.9, adult | CPT/HCPCS: 70551 ==

== ENCOUNTER 2025-02-06 07:22 | Outpatient (REF) | payer OTHER, SELFPAY ==
--- NOTE | ~2025-02-06 | MR_ITS ---
EXAMINATION: MR BRAIN WITHOUT CONTRAST CLINICAL INFORMATION: . E66.01. Morbid obesity. COMPARISON: Correlated to CT brain from an outside institution dated December 06, 2024. TECHNIQUE: MRI of the brain was obtained using routine sequences without contrast. FINDINGS: No restricted diffusion. No acute intracranial hemorrhage, mass effect, midline shift, hydrocephalus or herniation. Galeano-white matter differentiation is normal. There is a 13 mm hypointense T1 hyperintense T2 no restricted diffusion signal abnormality centered in the left frontal tomlinson radiata white matter/cingulate gyrus. Susceptibility signal within the right cerebellum. Sellar/suprasellar region demonstrated no signal abnormality or masses. Craniocervical junction demonstrates normal position of the cerebellar tonsils. Flow-void signal within the main cerebral vessels is normal. MR/MR head/brain wo con IMPRESSION: Old lacunar infarct, left frontal tomlinson radiata white matter/cingulate gyrus. No acute stroke/nonhemorrhagic ischemia. Susceptibility signal related to dystrophic calcification, right cerebellum. Electronically signed by: Sean Freeman MD 02/06/2025 08:41 AM EDT
--- OUTSIDE RECORDS SUMMARY | 2025-02-06 07:26 | XMS_ITS | Clinical Summary ---
Author Organization [facility] Address [address] [place] [address] Care Team Providers Care Call Centre Supervisor Name Role Phone Unavailable Primary Care Provider [...] medications Immunizations Immunization Administration Dates Next Due Pfizer-BioNTCustomer.io COVID-19 Vac cine Bivalent, (GALLEGOS PFIZER-BIONTECH COVID-19 [...] Charting 08/07/2024 08/06/2023 Dental Prophy 08/07/2024 08/06/2023 [id number] ( season) 2025 023 Imm-Influenza (#1) 2025 Dental FMX/Pano 08/07/2028 08/06/2023 Procedures Procedure Name Priority Date/Time Associated Diagnosis Comments Full INTRAORAL - COMP SERIES OF RADIOGRAPHIC IMAGES Routine 08/06/2023 1:00 PM EDT Retained tooth root Defective dental congregation Caries Full PROPHYLAXIS - ADULT Routine 024 1:00 PM EDT Retained tooth root Caries Defective dental congregation Full COMP ORAL EVALUATION - NEW/ESTABLISHED PATIENT Routine 08/06/2023 1:00 PM EDT Retained tooth root Caries Defective dental congregation from Last 3 Months or Most Recently Relevant to Health Maintenance [place]ENT[place]
== END 2025-02-06 07:23 | disposition home or self-care (01) ==
LOC: HO.MRI 07:22
PROVIDERS: PCP Nurse Practitioner Family; Visit Provider Nurse Practitioner Family
DX: E66.01 Morbid (severe) obesity due to excess calories (principal); Z68.41 Body mass index [BMI] 40.0-44.9, adult; R90.89 Other abnormal findings on diagnostic imaging of central nervous system; G47.10 Hypersomnia, unspecified
CPT/HCPCS: 70551

== ENCOUNTER 2025-03-03 08:57 | Outpatient (REF) | payer OTHER, SELFPAY ==
--- NOTE | ~2025-03-03 | US_ITS ---
EXAMINATION: US ABDOMEN LIMITED WITH LIVER ELASTOGRAPHY CLINICAL INFORMATION: Elevated LFTs. COMPARISON: None available. TECHNIQUE: Real-time imaging of the abdominal viscera. Noninvasive ultrasound liver fibrosis assessment is performed using Joce ElastPQ point quantification shear wave elastography (2D-SWE) with a C5-2 MHz transducer. Multiple elastography samples are obtained. FINDINGS: PANCREAS: The visualized pancreatic head and body are normal in appearance. The remainder of the pancreas is obscured from visualization by the overlying bowel gas. LIVER: The liver demonstrates normal size, contour and mildly diffusely increased echogenicity. No focal lesion or intrahepatic biliary duct dilatation. The right lobe measures 15.2 cm in length. The left lobe measures 10.3 cm in length. Portal flow is towards the liver (hepatopetal). Shear wave liver elastography median stiffness is 1.15 m/s (reference: normal median stiffness is 1.3 m/s or less). IQR/median stiffness to assess sampling precision is 0.13 (reference: good quality data set is IQR/median stiffness of 0.15 or less). This represents a quality data set. GALLBLADDER: The gallbladder is physiologically distended without evidence of stones, sludge, polyps, wall thickening or pericholecystic fluid. COMMON BILE DUCT: Normal in caliber measuring 0.2 cm in diameter. RIGHT KIDNEY: No hydronephrosis. No renal calculi or focal parenchymal lesions. The kidney measures 12.1 cm in maximum dimension. FREE FLUID: None. US/US abdomen belle w elastography IMPRESSION: 1. Mild increased hepatic echogenicity most likely representing steatosis. No suspicious focal lesion or biliary ductal dilatation. 2. Liver elastography: 1.15 m/s. Measurements are consistent with a high probability of normal liver stiffness. 3. Remainder of the examination is normal. REFERENCE: Society of Radiologists in Ultrasound Liver Stiffness Thresholds (2019): LIVER STIFFNESS THRESHOLDS: *Liver Stiffness equal or less than 1.3 m/s: High probability of being normal. *Liver Stiffness less than 1.7 m/s: In the absence of other known clinical signs, rules out compensated advanced chronic liver disease. *Liver Stiffness 1.7-2.1 m/s: Suggestive of compensated advanced chronic liver disease but need further test for confirmation. *Liver Stiffness over 2.1 m/s: Rules in compensated advanced chronic liver disease. *Liver Stiffness over 2.4 m/s: Suggestive of clinically significant portal hypertension. QUALITY OF DATA SET: *IQR/Median value equal or less than 0.15 implies a quality data set. *IQR/Median value over 0.15 implies a poor quality data set. SIGNIFICANT CHANGE FROM PRIOR EXAM: Significant change if liver stiffness measurement is 10% or greater from prior exam. OTHER CONSIDERATIONS: The stage of liver fibrosis may be overestimated in the setting of acute hepatitis, liver inflammation, elevated liver function tests, hepatic vascular congestion, obstructive cholestasis, non-fasting state, and infiltrative diseases such as amyloidosis and lymphoma. In some patients with NAFLD, the liver stiffness thresholds for compensated advanced chronic liver disease may be lower. In causes other than viral hepatitis and NAFLD, liver stiffness thresholds are not well established. Electronically signed by: Freedom Ventura MD 03/03/2025 09:41 AM EDT
--- OUTSIDE RECORDS SUMMARY | 2025-03-03 09:44 | XMS_ITS | Clinical Summary ---
Author Organization [facility] Address [address] [place] [address] Care Team Providers Care Device Processing Engineer Name Role Phone Unavailable Primary Care Provider [...] medications Immunizations Immunization Administration Dates Next Due Pfizer-BioNTiZ3D COVID-19 Vac cine Bivalent, (GALLEGOS PFIZER-BIONTECH COVID-19 [...] Charting 08/07/2024 08/06/2023 Dental Prophy 08/07/2024 08/06/2023 [id number] ( season) 2025 023 Imm-Influenza (#1) 2025 Dental FMX/Pano 08/07/2028 08/06/2023 Procedures Procedure Name Priority Date/Time Associated Diagnosis Comments Full INTRAORAL - COMP SERIES OF RADIOGRAPHIC IMAGES Routine 08/06/2023 1:00 PM EDT Retained tooth root Defective dental islam Caries Full PROPHYLAXIS - ADULT Routine 024 1:00 PM EDT Retained tooth root Caries Defective dental islam Full COMP ORAL EVALUATION - NEW/ESTABLISHED PATIENT Routine 08/06/2023 1:00 PM EDT Retained tooth root Caries Defective dental islam from Last 3 Months or Most Recently Relevant to Health Maintenance Insurance [place]AF[place] DENTAL
== END 2025-03-03 08:58 | disposition home or self-care (01) ==
LOC: HO.US 08:57
PROVIDERS: PCP Nurse Practitioner Family; Visit Provider Nurse Practitioner Family
DX: R79.89 Other specified abnormal findings of blood chemistry (principal)
CPT/HCPCS: 76705; 76981

== ENCOUNTER → 2025-03-03 08:59 | Outpatient (BNV) | payer OTHER, SELFPAY | PROVIDERS: PCP Nurse Practitioner Family; Visit Provider Radiology Diagnostic Radiology | DX: R94.5 Abnormal results of liver function studies (principal) | CPT/HCPCS: 76705 ==

== ENCOUNTER → 2025-03-16 09:40 | Outpatient (REF) | payer OTHER, SELFPAY ==
--- OUTSIDE RECORDS SUMMARY | 2025-03-16 10:54 | XMS_ITS | Clinical Summary ---
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 Name Role Phone Unavailable Primary Care Provider [...] medications Immunizations Immunization Administration Dates Next Due Pfizer-BioNTWabeebwa COVID-19 Vac cine Bivalent, (GALLEGOS PFIZER-BIONTECH COVID-19 [...] Charting 08/07/2024 08/06/2023 Dental Prophy 08/07/2024 08/06/2023 [id number] ( season) 2025 023 Imm-Influenza (#1) 2025 Dental FMX/Pano 08/07/2028 08/06/2023 Procedures Procedure Name Priority Date/Time Associated Diagnosis Comments Full INTRAORAL - COMP SERIES OF RADIOGRAPHIC IMAGES Routine 08/06/2023 1:00 PM EDT Retained tooth root Defective dental yarsani Caries Full PROPHYLAXIS - ADULT Routine 024 1:00 PM EDT Retained tooth root Caries Defective dental yarsani Full COMP ORAL EVALUATION - NEW/ESTABLISHED PATIENT Routine 08/06/2023 1:00 PM EDT Retained tooth root Caries Defective dental yarsani from Last 3 Months or Most Recently Relevant to Health Maintenance [place]ENT[place]
== END ==
LOC: HO.SL 09:40
PROVIDERS: PCP Nurse Practitioner Family; Visit Provider Nurse Practitioner Family
DX: R90.89 Other abnormal findings on diagnostic imaging of central nervous system (principal); G47.10 Hypersomnia, unspecified; E66.01 Morbid (severe) obesity due to excess calories; Z68.41 Body mass index [BMI] 40.0-44.9, adult
CPT/HCPCS: 95806

== ENCOUNTER → 2025-03-16 09:54 | Outpatient (BNV) | payer OTHER, SELFPAY | PROVIDERS: PCP Nurse Practitioner Family; Visit Provider Internal Medicine | DX: G47.33 Obstructive sleep apnea (adult) (pediatric) (principal) | CPT/HCPCS: 95806 ==